=== PATIENT | female | born 1985 | race Caucasian/White ===

== ENCOUNTER 2021-11-06 23:14 | Inpatient (IN) | payer BC, OTHER ==
[2021-11-06 23:32] VITALS: BMI 36.2
[2021-11-06] MEDS ORDERED: Lidocaine 1% (PF) 30 ML VIAL ONE (23:35)
[2021-11-06] MEDS ORDERED: hydrALAZINE 20 MG/ML VIAL SLOW IVP PRN (23:44)
[2021-11-06] MEDS ORDERED: Morphine 4 MG/ML VIAL IM PRN (23:44)
[2021-11-06] MEDS ORDERED: Ibuprofen 800 MG TAB PO PRN (23:45)
[2021-11-06] MEDS ORDERED: Lidocaine 1% (PF) 30 ML VIAL SC PRN (23:45)
[2021-11-06] MEDS ORDERED: Promethazine HCl 25 MG/ML VIAL IM PRN (23:45)
[2021-11-06] MEDS ORDERED: Diphenoxylate HCl/Atropine Tablet PO PRN ×2 (23:45)
[2021-11-06] MEDS ORDERED: Misoprostol 200 MCG TAB PR PRN (23:45)
[2021-11-06] MEDS ORDERED: HYDROcodone/Acetaminophen 5/325 mg Tablet PO PRN ×2 (23:45)
[2021-11-06] MEDS ORDERED: Carboprost 250 MCG/ML AMP IM PRN (23:45)
[2021-11-06] MEDS ORDERED: Morphine 4 MG/ML VIAL ONE (23:48)
[2021-11-07] MEDS ORDERED: NS w/ Oxytocin 30 units 500 ML IV SCH (00:30)
== END 2021-11-07 04:20 | disposition home or self-care (01) | DRG 776 ==
LOC: CSHLD/OP 23:14 → CSHLD 23:36
PROVIDERS: ADMIT Obstetrics & Gynecology; ATTEND Obstetrics & Gynecology
DX: O24.430 Gestational diabetes mellitus in the puerperium, diet controlled (principal); O34.211 Maternal care for low transverse scar from previous cesarean delivery
CPT/HCPCS: 36415; 86900; 86901; 99285; J2001